=== PATIENT | female | born 1985 | race African-American/Black ===

== ENCOUNTER 2016-04-16 20:21 | Emergency (ER) | payer OTHER ==
[~2016-04-16] VITALS: Ht 170.2 cm; Wt 63.5 kg
[~2016-04-16 20:21] MED LIST: BACTRIM DS TAB1 EACH PO; FLEXERIL PO; NORCO 5-325 TA1 EACH PO
[2016-04-16 22:07] LABS: URINE BILIRUBIN NEGATIVE (Negative); URINE BLOOD NEGATIVE (Negative); URINE COLOR YELLOW; URINE GLUCOSE-RANDOM* NEGATIVE (Negative); URINE KETONES NEGATIVE (Negative); URINE LEUKOCYTES-REFLEX TRACE (Negative); URINE PROTEIN (DIPSTICK) NEGATIVE (Negative); URINE SPECIFIC GRAVITY >= 1.030 (1.003-1.035); URINE UROBILINOGEN 0.2 E.U./dl (0.2-1.0)
[2016-04-16] MEDS ORDERED: MACROBID 100 M100 M1 PO (22:17)
[2016-04-16] MEDS ORDERED: MOBIC15 MG PO (22:17)
[2016-04-16] MEDS ORDERED: FLEXERIL PO (22:17)
[2016-04-16] MEDS ORDERED: MEDROLDOSEPACK PO (22:17)
[2016-04-16 22:31] VITALS: BP 105/67
== END 2016-04-16 22:32 | disposition home or self-care (01) ==
LOC: ER 20:21
PROVIDERS: Physician Assistant
DX: M54.5 Low back pain (principal); N39.0 Urinary tract infection, site not specified; Z87.442 Personal history of urinary calculi; N21.0 Calculus in bladder; Z98.890 Other specified postprocedural states; F10.99 Alcohol use, unspecified with unspecified alcohol-induced disorder

== ENCOUNTER 2017-05-21 13:14 | Emergency (ER) | payer OTHER ==
[~2017-05-21] VITALS: Ht 170.2 cm; Wt 63.5 kg
[~2017-05-21 13:14] MED LIST changes: +CIPRO500 MG PO; +KEFLEX250 MG PO; +MACROBID 100 M100 M1 PO; +MEDROLDOSEPACK PO; +MOBIC15 MG PO; +TRAMADOL 50 MG50 MG PO
[2017-05-21 13:38] LABS: URINE BILIRUBIN NEGATIVE (Negative); URINE BLOOD NEGATIVE (Negative); URINE CLARITY CLEAR; URINE COLOR YELLOW; URINE GLUCOSE-RANDOM* NEGATIVE (Negative); URINE KETONES TRACE (Negative); URINE LEUKOCYTES-REFLEX NEGATIVE (Negative); URINE NITRITE-REFLEX NEGATIVE (Negative); URINE PROTEIN (DIPSTICK) NEGATIVE (Negative); URINE SPECIFIC GRAVITY >= 1.030 (1.005-1.035); URINE UROBILINOGEN 0.2 E.U./dl (0.2-1.0)
[2017-05-21 13:47] LABS: ABSOLUTE NEUTROPHILS 2.2 thou/uL (1.4-8.2); HEMOGLOBIN 11.4 gm/dL (12.0-15.0); MCH 25.7 pg (26.0-34.0); MCHC 32.6 g/dL (28.0-37.0); MONOCYTES 5.6 % (1.0-8.0); PLATELET COUNT 204 thou/uL (150-400); POLYS 43.4 % (36.0-66.0); RBC 4.42 mil/uL (4.20-5.00); RDW 17.1 % (10.5-14.5)
[2017-05-21 13:58] LABS: CALCIUM 8.9 mg/dL (8.5-10.1); CREATININE 0.7 mg/dL (0.6-1.0); POTASSIUM 3.6 mmol/L (3.5-5.1)
[2017-05-21 14:04] LABS: ALBUMIN 3.5 g/dL (3.4-5.0); TOTAL BILIRUBIN 0.5 mg/dL (<0.1-1.0); TOTAL PROTEIN 7.4 g/dL (6.4-8.2)
[2017-05-21] MEDS ORDERED: BENTYL 20 MG TA20 M1 PO (14:45)
[2017-05-21] MEDS ORDERED: LOPERAMIDE 2 MG2 M1 PO (14:45)
[2017-05-21 15:13] VITALS: BP 121/67
== END 2017-05-21 15:18 | disposition home or self-care (01) ==
LOC: ER 13:14
PROVIDERS: Physician Assistant
DX: R10.32 Left lower quadrant pain (principal); R19.7 Diarrhea, unspecified; Z90.49 Acquired absence of other specified parts of digestive tract; Z87.442 Personal history of urinary calculi

== ENCOUNTER 2017-08-20 11:28 | Observation (INO) | payer OTHER ==
[~2017-08-20] VITALS: Ht 167.6 cm; Wt 63.5 kg
[~2017-08-20 11:28] MED LIST changes: +BENTYL 20 MG TA20 M1 PO; +LOPERAMIDE 2 MG2 M1 PO
[2017-08-20 11:30] VITALS: BP 100/68
[2017-08-20 12:05] LABS: URINE BILIRUBIN NEGATIVE (Negative); URINE BLOOD NEGATIVE (Negative); URINE CLARITY CLEAR; URINE COLOR YELLOW; URINE GLUCOSE-RANDOM* NEGATIVE (Negative); URINE KETONES 3+ (Negative); URINE LEUKOCYTES-REFLEX NEGATIVE (Negative); URINE PROTEIN (DIPSTICK) TRACE (Negative); URINE SPECIFIC GRAVITY >= 1.030 (1.005-1.035)
[2017-08-20 12:06] LABS: URINE NITRITE-REFLEX POSITIVE (Negative)
[2017-08-20 12:10] LABS: URINE REDUCING SUBSTANCE NEGATIVE
[2017-08-20 12:16] LABS: HEMOGLOBIN 11.5 gm/dL (12.0-15.0)
[2017-08-20 12:18] LABS: HEMATOCRIT 35.2 % (37.0-47.0); MCH 26.2 pg (26.0-34.0); MCHC 32.8 g/dL (28.0-37.0); MCV 79.8 fL (80.0-100.0); PLATELET COUNT 187 thou/uL (150-400); RBC 4.41 mil/uL (4.20-5.00); RDW 16.7 % (10.5-14.5); WBC 12.3 thou/uL (4.0-11.0)
[2017-08-20 12:20] LABS: CASTS None Seen /LPF (None Seen); SQUAMOUS >10 Many /LPF (0-3)
[2017-08-20 12:21] LABS: CRYSTALS None Seen /LPF (None Seen)
[2017-08-20 12:22] LABS: BACTERIA-REFLEX 1-9 Few /HPF (None Seen); URINE RBC None Seen /HPF (0-2); URINE WBC-REFLEX 0-5 Rare /HPF (0-5)
[2017-08-20 12:28] LABS: CALCIUM 9.1 mg/dL (8.5-10.1); CREATININE 0.7 mg/dL (0.6-1.0); POTASSIUM 3.4 mmol/L (3.5-5.1)
[2017-08-20 12:34] LABS: ALBUMIN 3.6 g/dL (3.4-5.0); TOTAL BILIRUBIN 1.6 mg/dL (<0.1-1.0); TOTAL PROTEIN 8.1 g/dL (6.4-8.2)
[2017-08-20 12:48] LABS: ABSOLUTE NEUTROPHILS 11.8 thou/uL (1.4-8.2); ANISOCYTOSIS 1+; METAMYELOCYTES 1 %
[2017-08-20 15:20] VITALS: BP 109/69
[2017-08-20 15:33] VITALS: BP 114/77
[2017-08-20 15:55] VITALS: BP 115/79
[2017-08-20 20:00] VITALS: BP 110/72
[2017-08-21] VITALS: BP 102/60
[2017-08-21 04:00] VITALS: BP 81/51
[2017-08-21 04:44] LABS: HEMOGLOBIN 10.1 gm/dL (12.0-15.0); MCH 27.1 pg (26.0-34.0); MCHC 33.5 g/dL (28.0-37.0); MCV 80.7 fL (80.0-100.0); RBC 3.72 mil/uL (4.20-5.00); RDW 16.6 % (10.5-14.5); WBC 10.2 thou/uL (4.0-11.0)
[2017-08-21 04:57] LABS: ALBUMIN 2.4 g/dL (3.4-5.0); CALCIUM 7.8 mg/dL (8.5-10.1); CREATININE 0.7 mg/dL (0.6-1.0); PHOSPHORUS 2.3 mg/dL (2.5-4.9); POTASSIUM 3.1 mmol/L (3.5-5.1)
[2017-08-21 07:20] VITALS: BP 92/63
[2017-08-21 16:35] VITALS: BP 104/59
[2017-08-21 20:27] VITALS: BP 107/53
[2017-08-22 03:58] VITALS: BP 108/56
[2017-08-22 04:13] LABS: ALBUMIN 2.5 g/dL (3.4-5.0); CALCIUM 8.5 mg/dL (8.5-10.1); CREATININE 0.6 mg/dL (0.6-1.0); MAGNESIUM 1.8 mg/dL (1.8-2.4); POTASSIUM 3.3 mmol/L (3.5-5.1); TOTAL BILIRUBIN 0.8 mg/dL (<0.1-1.0); TOTAL PROTEIN 6.3 g/dL (6.4-8.2)
[2017-08-22 05:50] LABS: ABSOLUTE NEUTROPHILS 4.8 thou/uL (1.4-8.2); BASOPHILS 0.8 % (0.0-2.0); EOSINOPHILS 7.3 % (0.0-3.0); HEMOGLOBIN 9.6 gm/dL (12.0-15.0); LYMPHOCYTES 15.8 % (24.0-44.0); MCH 26.5 pg (26.0-34.0); MCV 80.3 fL (80.0-100.0); MONOCYTES 6.2 % (1.0-8.0); PLATELET COUNT 157 thou/uL (150-400); POLYS 69.9 % (36.0-66.0); RBC 3.62 mil/uL (4.20-5.00); RDW 16.9 % (10.5-14.5); WBC 6.8 thou/uL (4.0-11.0)
[2017-08-22 07:20] VITALS: BP 96/63
[2017-08-22] MEDS ORDERED: CIPRO500 MG PO (09:07)
[2017-08-22 10:21] VITALS: BP 96/63
== END 2017-08-22 11:57 | disposition home or self-care (01) ==
LOC: ER 11:28 → EROBS 14:49 → 4N 15:37
PROVIDERS: Hospitalist; Internal Medicine Geriatric Medicine; Nurse Practitioner Family
DX: K52.9 Noninfective gastroenteritis and colitis, unspecified (principal); N39.0 Urinary tract infection, site not specified; K58.9 Irritable bowel syndrome, unspecified; K80.20 Calculus of gallbladder without cholecystitis without obstruction; K58.0 Irritable bowel syndrome with diarrhea; N20.0 Calculus of kidney; F17.210 Nicotine dependence, cigarettes, uncomplicated; Z90.89 Acquired absence of other organs; Z98.890 Other specified postprocedural states; Z72.89 Other problems related to lifestyle

== ENCOUNTER 2019-04-03 13:54 | Emergency (ER) | payer BC ==
[~2019-04-03] VITALS: Ht 167.6 cm; Wt 65.8 kg
[2019-04-03 14:25] LABS: ABSOLUTE NEUTROPHILS 1.6 thou/uL (1.4-8.2); BASOPHILS 1.3 % (0.0-2.0); EOSINOPHILS 7.2 % (0.0-3.0); HEMATOCRIT 43.2 % (37.0-47.0); HEMOGLOBIN 14.1 gm/dL (12.0-15.0); LYMPHOCYTES 47.6 % (24.0-44.0); MCH 28.9 pg (26.0-34.0); MCHC 32.7 g/dL (28.0-37.0); MCV 88.4 fL (80.0-100.0); MONOCYTES 6.1 % (1.0-8.0); PLATELET COUNT 191 thou/uL (150-400); POLYS 37.8 % (36.0-66.0); RBC 4.89 mil/uL (4.20-5.00); RDW 13.7 % (10.5-14.5); WBC 4.4 thou/uL (4.0-11.0)
[2019-04-03 14:29] LABS: URINE BILIRUBIN NEGATIVE (Negative); URINE BLOOD NEGATIVE (Negative); URINE COLOR YELLOW; URINE GLUCOSE-RANDOM* NEGATIVE (Negative); URINE KETONES NEGATIVE (Negative); URINE NITRITE-REFLEX NEGATIVE (Negative); URINE PROTEIN (DIPSTICK) NEGATIVE (Negative); URINE SPECIFIC GRAVITY >= 1.030 (1.005-1.035); URINE UROBILINOGEN 0.2 E.U./dl (0.2-1.0)
[2019-04-03 14:35] LABS: URINE LEUKOCYTES-REFLEX 2+ (Negative)
[2019-04-03 14:37] LABS: URINE CLARITY SL HAZY
[2019-04-03 14:45] LABS: CALCIUM 9.1 mg/dL (8.5-10.1); CREATININE 0.8 mg/dL (0.6-1.0); POTASSIUM 3.7 mmol/L (3.5-5.1)
[2019-04-03 14:45] LABS: BACTERIA-REFLEX 1-9 Few /HPF (None Seen); CASTS None Seen /LPF (None Seen); CRYSTALS None Seen /LPF (None Seen); SQUAMOUS 4-10 Moderate /LPF (0-3); URINE RBC None Seen /HPF (0-2); URINE WBC-REFLEX >25 Many /HPF (0-5)
[2019-04-03 14:51] LABS: ALBUMIN 3.9 g/dL (3.4-5.0); TOTAL BILIRUBIN 0.5 mg/dL (<0.1-1.0); TOTAL PROTEIN 8.3 g/dL (6.4-8.2)
[2019-04-03 14:54] LABS: AMP/METHAMP Negative (Negative); BARBITURATES Negative (Negative); BENZODIAZEPINES Negative (Negative); COCAINE Negative (Negative); METHADONE Negative (Negative); OPIATES Negative (Negative); PCP Negative (Negative)
[2019-04-03] MEDS ORDERED: CARAFATE 1 GM TA1 G1 PO (16:56)
[2019-04-03] MEDS ORDERED: OMEPRAZOLE40 MG PO (16:56)
[2019-04-03] MEDS ORDERED: ONDANSETRON HCL4 M2 PO (16:57)
[2019-04-03] MEDS ORDERED: KEFLEX500 M1 PO (16:57)
[2019-04-03 17:03] VITALS: BP 107/68
== END 2019-04-03 17:04 | disposition home or self-care (01) ==
LOC: ER 13:54
PROVIDERS: Emergency Medicine
DX: K29.70 Gastritis, unspecified, without bleeding (principal); N39.0 Urinary tract infection, site not specified; R11.10 Vomiting, unspecified; F17.210 Nicotine dependence, cigarettes, uncomplicated; Z98.890 Other specified postprocedural states; Z90.49 Acquired absence of other specified parts of digestive tract; Z87.440 Personal history of urinary (tract) infections; Z87.442 Personal history of urinary calculi; Z88.6 Allergy status to analgesic agent